=== PATIENT | male | born 1935 | race Caucasian/White ===

== ENCOUNTER 2019-06-04 15:00 | Inpatient (IN) | payer MEDICARE, BC ==
[~2019-06-04] VITALS: Ht 175.3 cm; Wt 86.2 kg
[2019-06-04] MEDS ORDERED: ACET500T68 PO (15:27)
[2019-06-04] MEDS ORDERED: GABA600T7 PO (15:47)
[2019-06-04] MEDS ORDERED: ASPI325T8 PO (15:47)
[2019-06-04] MEDS ORDERED: CYAN250012 PO (15:47)
[2019-06-04] MEDS ORDERED: CITA40TA5 PO (15:47)
[2019-06-04] MEDS ORDERED: QUET50TA5 PO (15:47)
[2019-06-04] MEDS ORDERED: METF500T16 PO (15:47)
[2019-06-04] MEDS ORDERED: MEMA5TAB14 PO (15:47)
[2019-06-04] MEDS ORDERED: ATORVASTATIN CA80 MG PO (15:47)
[2019-06-04] MEDS ORDERED: LISI-334 PO (15:47)
[2019-06-04] MEDS ORDERED: TAMS0.4C97 PO (15:47)
[2019-06-04] MEDS ORDERED: METHYL SALICYLATE/MENTHOL TOPICAL OINTMENT 57GM TUBE. TP PRN (16:00)
[2019-06-04] MEDS ORDERED: MAGNESIUM HYDROXIDE 2,400 MG/30 ML ORAL.SUSP. PO PRN (16:00)
[2019-06-04] MEDS ORDERED: ACETAMINOPHEN 325 MG TABLET PO PRN (16:00)
[2019-06-04] MEDS ORDERED: MAG HYDROX/AL HYDROX/SIMETH 30 ML ORAL.SUSP PO PRN (16:00)
[2019-06-04] MEDS ORDERED: ACETAMINOPHEN 500 MG TABLET PO PRN (16:30)
[2019-06-04 17:00] VITALS: BP 108/60
[2019-06-04] MEDS: metFORMIN 500 MG TABLET PO SCH (17:00)
[2019-06-04 19:17] LABS: BASO # 0.1 x10^3/uL (0.0-0.2); BASO % 1 % (0-3); EOS # 0.2 x10^3/uL (0.0-0.7); EOS % 2 % (0-3); HEMOGLOBIN 11.7 g/dL (13.0-17.5); LYMPH # 1.4 x10^3/uL (1.0-4.8); LYMPH % 17 % (24-48); MEAN CORPUSCULAR HEMOGLOBIN 32 pg (25-35); MEAN CORPUSCULAR HGB CONC 33 g/dL (31-37); MEAN CORPUSCULAR VOLUME 96 fL (79-100); MONO # 0.7 x10^3/uL (0.0-1.1); MONO % 8 % (0-9); NEUT % 73 % (31-73); PLATELET COUNT 240 x10^3/uL (140-400); RED BLOOD COUNT 3.66 x10^6/uL (4.30-5.70); RED CELL DISTRIBUTION WIDTH 15.5 % (11.5-14.5); WHITE BLOOD COUNT 8.3 x10^3/uL (4.0-11.0)
[2019-06-04 19:42] LABS: ALBUMIN 3.2 g/dL (3.4-5.0); ALBUMIN/GLOBULIN RATIO 0.7 (1.0-1.7); CALCIUM 9.1 mg/dL (8.5-10.1); CREATININE 1.5 mg/dL (0.7-1.3); GFR 44.8; MAGNESIUM 1.8 mg/dL (1.8-2.4); POTASSIUM 3.3 mmol/L (3.5-5.1); TOTAL BILIRUBIN 0.7 mg/dL (0.2-1.0); TOTAL PROTEIN 7.7 g/dL (6.4-8.2)
[2019-06-04] MEDS ORDERED: ATORVASTATIN CALCIUM 20 MG TABLET PO SCH (21:00)
[2019-06-04] MEDS: GABAPENTIN 300 MG CAPSULE. PO SCH (21:27)
[2019-06-04] MEDS: QUEtiapine 50 MG TABLET. PO SCH (21:27)
--- NOTE | 2019-06-04 21:52 | PDOC ---
Exam Note: Shola Note: Please also refer to the separate dictated note~for this date of service dictated separately. Discussed the patient with Nursing staff reviewed the chart.~Reviewed interim history and current functioning. Reviewed vital signs,~Labs/ Radiology~and current medications noted below. Continue current treatment with the changes noted in the dictated addendum note Assessment: Vital Signs/I&O: Vital Signs Date Time Temp Pulse Resp B/P (MAP) Pulse Ox O2 Delivery O2 Flow Rate FiO2 06/04/19 17:00 97.5 79 16 108/60 (76) 100 Labs: Laboratory Tests Test 06/04/19 18:58 06/04/19 18:59 Glucose (Fingerstick) 141 mg/dL (70-99) H White Blood Count 8.3 x10^3/uL (4.0-11.0) Red Blood Count 3.66 x10^6/uL (4.30-5.70) L Hemoglobin 11.7 g/dL (13.0-17.5) L Hematocrit 35.0 % (39.0-53.0) L Mean Corpuscular Volume 96 fL (79-100) Mean Corpuscular Hemoglobin 32 pg (25-35) Mean Corpuscular Hemoglobin Concent 33 g/dL (31-37) Red Cell Distribution Width 15.5 % (11.5-14.5) H Platelet Count 240 x10^3/uL (140-400) Neutrophils (%) (Auto) 73 % (31-73) Lymphocytes (%) (Auto) 17 % (24-48) L Monocytes (%) (Auto) 8 % (0-9) Eosinophils (%) (Auto) 2 % (0-3) Basophils (%) (Auto) 1 % (0-3) Neutrophils # (Auto) 6.0 x10^3uL (1.8-7.7) Lymphocytes # (Auto) 1.4 x10^3/uL (1.0-4.8) Monocytes # (Auto) 0.7 x10^3/uL (0.0-1.1) Eosinophils # (Auto) 0.2 x10^3/uL (0.0-0.7) Basophils # (Auto) 0.1 x10^3/uL (0.0-0.2) Sodium Level 142 mmol/L (136-145) Potassium Level 3.3 mmol/L (3.5-5.1) L Chloride Level 104 mmol/L (98-107) Carbon Dioxide Level 27 mmol/L (21-32) Anion Gap 11 (6-14) Blood Urea Nitrogen 21 mg/dL (8-26) Creatinine 1.5 mg/dL (0.7-1.3) H Estimated GFR (Cockcroft-Gault) 44.8 BUN/Creatinine Ratio 14 (6-20) Glucose Level 148 mg/dL (70-99) H Calcium Level 9.1 mg/dL (8.5-10.1) Magnesium Level 1.8 mg/dL (1.8-2.4) Total Bilirubin 0.7 mg/dL (0.2-1.0) Aspartate Amino Transferase (AST) 18 U/L (15-37) Alanine Aminotransferase (ALT) 13 U/L (16-63) L Alkaline Phosphatase 96 U/L (46-116) Total Protein 7.7 g/dL (6.4-8.2) Albumin 3.2 g/dL (3.4-5.0) L Albumin/Globulin Ratio 0.7 (1.0-1.7) L Current Medications: Meds: Current Medications Medications (Trade) Dose Ordered Sig/Olga Route PRN Reason Start Time Stop Time Status Last Admin Dose Admin Metformin HCl (Glucophage) 500 mg BIDWMEALS PO 06/04/19 17:00 06/04/19 17:00 Quetiapine Fumarate (SEROquel) 50 mg BID PO 06/04/19 21:00 06/04/19 21:27 Atorvastatin Calcium (Lipitor) 80 mg QHS PO 06/04/19 21:00 06/04/19 21:27 Gabapentin (Neurontin) 300 mg BID PO 06/04/19 21:00 06/04/19 21:27 I have reviewed the current psychotropics carefully including drug interactions. Risk benefit ratio favors no change other than as noted in my dictated progress note. 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
[2019-06-05 06:30] VITALS: BP 121/63
[2019-06-05 06:30] LABS: BACTERIA,URINE MOD /HPF (0-FEW); BILIRUBIN,URINE NEG (NEG); CLARITY,URINE CLOUDY; COLOR,URINE AMBER; GLUCOSE,URINE NEG (NEG); NITRITE,URINE NEG (NEG); RBC,URINE >40 /HPF (0-2); UROBILINOGEN,URINE 8 mg/dL (0.2 mg/dL); WBC,URINE >40 /HPF (0-4)
[2019-06-05 06:31] LABS: GRANULAR CASTS,URINE OCC /HPF; HYALINE CASTS, URINE FEW /HPF; SQUAMOUS EPITHELIAL CELL,UR FEW /LPF
[2019-06-05] MEDS: GABAPENTIN 300 MG CAPSULE. PO SCH (08:16)
[2019-06-05] MEDS: QUEtiapine 50 MG TABLET. PO SCH (08:17)
[2019-06-05] MEDS: metFORMIN 500 MG TABLET PO SCH (08:17)
[2019-06-05] MEDS ORDERED: NICOTINE 7MG PATCH. TD SCH (09:00)
[2019-06-05] MEDS ORDERED: TAMSULOSIN 0.4 MG CAP.ER.24H. PO SCH (09:00)
[2019-06-05] MEDS ORDERED: MEMANTINE 5 MG TABLET. PO SCH (09:00)
[2019-06-05] MEDS ORDERED: ASPIRIN 325 MG TABLET PO SCH (09:00)
[2019-06-05] MEDS ORDERED: LISINOPRIL 20 MG TABLET PO SCH (09:00)
[2019-06-05] MEDS ORDERED: CITALOPRAM 20 MG TABLET. PO SCH (09:00)
[2019-06-05] MEDS ORDERED: CYANOCOBALAMIN (VITAMIN B-12) 1,000 MCG TABLET. PO SCH (09:00)
[2019-06-05] MEDS ORDERED: POTASSIUM CHLORIDE 20 MEQ TABLET.ER. PO ONE (12:00)
[2019-06-05 13:25] LABS: THYROID STIM HORMONE (TSH) 1.706 uIU/mL (0.358-3.740)
[2019-06-05] MEDS ORDERED: IV NORMAL SALINE 500ML 500 ML IV ONE (14:15)
[2019-06-05 15:05] LABS: BASO # 0.1 x10^3/uL (0.0-0.2); BASO % 1 % (0-3); EOS # 0.1 x10^3/uL (0.0-0.7); EOS % 2 % (0-3); HEMOGLOBIN 10.5 g/dL (13.0-17.5); LYMPH # 1.4 x10^3/uL (1.0-4.8); LYMPH % 17 % (24-48); MEAN CORPUSCULAR HEMOGLOBIN 32 pg (25-35); MEAN CORPUSCULAR HGB CONC 33 g/dL (31-37); MEAN CORPUSCULAR VOLUME 96 fL (79-100); MONO # 0.8 x10^3/uL (0.0-1.1); MONO % 10 % (0-9); NEUT # 5.8 x10^3uL (1.8-7.7); NEUT % 71 % (31-73); PLATELET COUNT 224 x10^3/uL (140-400); RED BLOOD COUNT 3.32 x10^6/uL (4.30-5.70); RED CELL DISTRIBUTION WIDTH 15.1 % (11.5-14.5); WHITE BLOOD COUNT 8.3 x10^3/uL (4.0-11.0)
[2019-06-05 15:16] LABS: ALBUMIN/GLOBULIN RATIO 0.7 (1.0-1.7); CALCIUM 9.1 mg/dL (8.5-10.1); CREATININE 1.7 mg/dL (0.7-1.3); GFR 38.8; POTASSIUM 4.3 mmol/L (3.5-5.1); TOTAL BILIRUBIN 0.5 mg/dL (0.2-1.0); TOTAL PROTEIN 7.3 g/dL (6.4-8.2)
[2019-06-05 15:44] VITALS: BP 137/75
[2019-06-05] MEDS ORDERED: OLANZapine 2.5 MG TABLET PO PRN (16:00)
--- NOTE | 2019-06-05 16:12 | HP ---
ADMIT DATE: 06/04/2019 This is a late entry date of service 06/04/2019 covers elements not covered in my initial note of 06/04/2019. I met with the patient in the evening of 06/04/2019. Discussed with nursing staff, reviewed the chart. IDENTIFYING DATA: The patient is an 83-year-old male referred to us from the Emergency Room at [facility] where he presented and admitted by his , Hope Pérez, who is his DPOA, after he presented on account of increasing agitation and confusion. He was combative, hitting staff, and verbally aggressive, received Haldol several times. He essentially lives at home with his and has been treated by his primary care physician, Dr. Calderon. He has been increasingly confused, psychotic, and had been at a nursing facility for 10 days and then family took him home before he was found to be unmanageable and then brought to the ER because of dangerous [id number] behaviors. CHIEF COMPLAINT: "No." The patient is quite confused. HISTORY OF PRESENT ILLNESS: The patient has a history of dementia, Alzheimer's of vascular type. He has been essentially residing at home, but progressively getting totally unmanageable, psychotic, agitated within the correction and then back home. He has had sleep and appetite changes, mood swings, but no clear history of bipolar disorder, suicidal, or homicidal ideation. PAST PSYCHIATRIC HISTORY: As above. MEDICAL HISTORY: Positive for progressive weakness, falls, acute mental status changes, atrial fibrillation, and type 2 diabetes mellitus. CODE STATUS: DNR. DRUG ALLERGIES: Negative. ACCU-CHEKS: Daily. DIET: Cardiac diabetic finger foods. Takes medications whole. ACTIVITIES: Ambulates with walker. PRIOR LABORATORIES: UA was negative at [facility]. CURRENT PSYCHOTROPICS: Seroquel 50 mg b.i.d., Celexa 40 mg daily, Namenda 5 mg daily until 06/08/2019 and then increase to b.i.d. FAMILY HISTORY: Noncontributory. SOCIAL HISTORY: No history of alcohol, drug abuse, physical, sexual or elder abuse. He is not known to be a perpetrator. REACTION TO HOSPITALIZATION: The patient oblivious of this. ASSETS: Supportive family. MENTAL STATUS EXAMINATION: The patient was seen individually in the evening of 06/04/2019. He is oriented to himself, anxious, restless, and unaware of where he was, felt he had been here for many years. Insight, judgment, recent and remote memory, attention, concentration, fund of knowledge poor, consistent with his diagnosis. IMPRESSION: Major neurocognitive disorder, Alzheimer, vascular with delusion, depression, behavioral disturbance; anxiety disorder, unspecified; impulse control disorder, unspecified. Rest diagnoses as noted above. PLAN: Admit to Geropsychiatry Unit at [facility]. I will see the patient daily individually from a psychiatric standpoint. Medical followup with Dr. Merida. Continue the patient on his current psychotropics, observe baseline, then make further adjustments as clinically indicated. Estimated length of stay 10-12 days. DISCHARGE PLANS: Either back to facility or possibly home, though the facility may be a more appropriate disposition. MAN Cristina LANDAVERDE MD DR: KYLE/abundio JOB#: [id number] / [id number]
--- NOTE | 2019-06-05 16:20 | RAD ---
EXAM: Chest, single view. HISTORY: Shortness of breath. COMPARISON: None. FINDINGS: A frontal view of the chest is obtained. There is diffuse interstitial infiltrate. There is no consolidation, pleural effusion or pneumothorax. There is a prominent cardiac silhouette. There is a dorsal column stimulator overlying the mid thoracic spine. IMPRESSION: Diffuse interstitial infiltrate. Electronically signed by: Kathie Morocho MD (06/05/2019 4:17 PM) [facility]
--- NOTE | 2019-06-05 16:24 | DS ---
DATE OF DISCHARGE: 06/05/2019 DISCHARGE SUMMARY AND PSYCHIATRIC PROGRESS NOTE This note covers elements not covered in my initial note 06/05. REASON FOR ADMISSION: Please refer to the admission history for details. Briefly, the patient is an 83-year-old male referred to us from the Emergency Room at [facility] where he presented from home after having spent 10 days in a facility on account of his worsening confusion and agitation. The patient had been totally unmanageable at home and in the ER, was combative, hitting staff, verbally aggressive, received Haldol several times and had failed all these interventions. Behaviors were deemed dangerous, unmanageable resulting in this referral. SIGNIFICANT FINDINGS AND CLINICAL COURSE: Following admission, the patient was seen in the evening of 06/04 by myself and seen daily thereafter. He remained confused, intermittently agitated and paranoid. On 06/05, he seemed to have worsening confusion, sedation. Labs showed an elevated lactic acid and he was in renal failure and transferred to [address] [place] [address] Medical/Surgical floor per Dr. Merida for medical stabilization. Prior to discharge on 06/05, no CV, , pulmonary, eye, ENT system symptoms on review. Reliability poor. MENTAL STATUS EXAM: Oriented to himself. Insight, judgment, recent and remote memory, attention, concentration, fund of knowledge poor, consistent with his diagnosis. FINAL DIAGNOSES: Major neurocognitive disorder, Alzheimer, vascular with delusion, depression, behavioral disturbance; anxiety disorder, unspecified; impulse control disorder, unspecified; renal failure; elevated lactic acid. Rest unchanged from admission. DISCHARGE MEDICATIONS: Please refer to the MRAD. DISCHARGE INSTRUCTIONS: Psychiatric and medical followup on . We will defer all this to Dr. Merida. MAN Cristina LANDAVERDE MD DR: KYLE/abundio JOB#: [id number] / [id number]
--- NOTE | 2019-06-05 16:46 | RAD ---
Examination: CT HEAD WO CONTRAST History: Altered mental status Comparison/Correlation: None Findings: Axial images of the head were obtained without contrast. Atrophy is present. Old right occipital lobe infarct is present. Old right frontal lobe infarct is present. Old right thalamic lacunar infarct noted. Ventriculomegaly is present and likely represents volume loss. No depressed fracture. Globes and optic nerves are unremarkable. Impression: Old infarcts. Atrophy and chronic ischemic change. Ventriculomegaly likely represents volume loss. Correlate for possibility of normal pressure hydrocephalus. PQRS Compliance Statement: One or more of the following individualized dose reduction techniques were utilized for this examination: 1. Automated exposure control 2. Adjustment of the mA and/or kV according to patient size 3. Use of iterative reconstruction technique Electronically signed by: Leif Stockton MD (06/05/2019 4:43 PM) [facility]
[2019-06-05] MEDS ORDERED: OLAN2.5T3 PO (17:45)
[2019-06-05] MEDS ORDERED: NICO1PAT25 TP (17:45)
--- NOTE | 2019-06-05 21:58 | PDOC ---
Exam Note: Shola Note: Please also refer to the separate dictated note~for this date of service dictated separately.~Patient seen individually. Discussed the patient with Nursing staff reviewed the chart.~Reviewed interim history and current functioning. Reviewed vital signs,~Labs/ Radiology~and current medications noted below. Continue current treatment with the changes noted in the dictated addendum note Assessment: Vital Signs/I&O: Vital Signs Date Time Temp Pulse Resp B/P (MAP) Pulse Ox O2 Delivery O2 Flow Rate FiO2 06/05/19 15:44 97.2 104 16 137/75 (95) 95 I & O 06/04/19 06/04/19 06/05/19 15:00 23:00 07:00 Intake Total 240 ml 100 ml Output Total 350 ml Balance 240 ml -250 ml Labs: Laboratory Tests Test 06/05/19 05:08 06/05/19 07:15 06/05/19 13:33 06/05/19 14:45 Urine Collection Type Unknown Urine Color Cheryl Urine Clarity Cloudy Urine pH 5.5 Urine Specific [place] 1.020 Urine Protein Trace (NEG-TRACE) Urine Glucose (UA) Neg mg/dL (NEG) Urine Ketones (Stick) Trace mg/dL (NEG) Urine Blood Mod (NEG) Urine Nitrite Neg (NEG) Urine Bilirubin Neg (NEG) Urine Urobilinogen Dipstick 8 mg/dL (0.2 mg/dL) Urine Leukocyte Esterase Small (NEG) Urine RBC >40 /HPF (0-2) Urine WBC >40 /HPF (0-4) Urine Squamous Epithelial Cells Few /LPF Urine Bacteria Mod /HPF (0-FEW) Urine Hyaline Casts Few /HPF Urine Granular Casts Occ /HPF Urine Mucus Marked /LPF Glucose (Fingerstick) 113 mg/dL (70-99) H 102 mg/dL (70-99) H White Blood Count 8.3 x10^3/uL (4.0-11.0) Red Blood Count 3.32 x10^6/uL (4.30-5.70) L Hemoglobin 10.5 g/dL (13.0-17.5) L Hematocrit 32.0 % (39.0-53.0) L Mean Corpuscular Volume 96 fL (79-100) Mean Corpuscular Hemoglobin 32 pg (25-35) Mean Corpuscular Hemoglobin Concent 33 g/dL (31-37) Red Cell Distribution Width 15.1 % (11.5-14.5) H Platelet Count 224 x10^3/uL (140-400) Neutrophils (%) (Auto) 71 % (31-73) Lymphocytes (%) (Auto) 17 % (24-48) L Monocytes (%) (Auto) 10 % (0-9) H Eosinophils (%) (Auto) 2 % (0-3) Basophils (%) (Auto) 1 % (0-3) Neutrophils # (Auto) 5.8 x10^3uL (1.8-7.7) Lymphocytes # (Auto) 1.4 x10^3/uL (1.0-4.8) Monocytes # (Auto) 0.8 x10^3/uL (0.0-1.1) Eosinophils # (Auto) 0.1 x10^3/uL (0.0-0.7) Basophils # (Auto) 0.1 x10^3/uL (0.0-0.2) Sodium Level 143 mmol/L (136-145) Potassium Level 4.3 mmol/L (3.5-5.1) # Chloride Level 107 mmol/L (98-107) Carbon Dioxide Level 25 mmol/L (21-32) Anion Gap 11 (6-14) Blood Urea Nitrogen 28 mg/dL (8-26) H Creatinine 1.7 mg/dL (0.7-1.3) H Estimated GFR (Cockcroft-Gault) 38.8 BUN/Creatinine Ratio 16 (6-20) Glucose Level 129 mg/dL (70-99) H Lactic Acid Level 4.1 mmol/L (0.4-2.0) *H Calcium Level 9.1 mg/dL (8.5-10.1) Total Bilirubin 0.5 mg/dL (0.2-1.0) Aspartate Amino Transferase (AST) 18 U/L (15-37) Alanine Aminotransferase (ALT) 13 U/L (16-63) L Alkaline Phosphatase 91 U/L (46-116) Total Protein 7.3 g/dL (6.4-8.2) Albumin 3.0 g/dL (3.4-5.0) L Albumin/Globulin Ratio 0.7 (1.0-1.7) L Test 06/05/19 18:40 Lactic Acid Level 1.9 mmol/L (0.4-2.0) Current Medications: Meds: Current Medications Medications (Trade) Dose Ordered Sig/Olga Route PRN Reason Start Time Stop Time Status Last Admin Dose Admin Aspirin (Cheo Aspirin) 325 mg DAILY PO 06/05/19 09:00 06/05/19 17:03 DC 06/05/19 08:16 Lisinopril (Prinivil) 20 mg DAILY PO 06/05/19 09:00 06/05/19 17:03 DC 06/05/19 08:16 Memantine (Namenda) 5 mg DAILY PO 06/05/19 09:00 06/05/19 17:03 DC 06/05/19 08:17 Tamsulosin HCl (Flomax) 0.4 mg DAILY PO 06/05/19 09:00 06/05/19 17:03 DC 06/05/19 08:16 Citalopram Hydrobromide (CeleXA) 40 mg DAILY PO 06/05/19 09:00 06/05/19 17:03 DC 06/05/19 08:16 Cyanocobalamin (Vitamin B-12) 1,000 mcg DAILY PO 06/05/19 09:00 06/05/19 17:03 DC 06/05/19 08:17 Nicotine (Nicoderm Cq 7mg) 1 patch DAILY TD 06/05/19 09:00 06/05/19 17:03 DC 06/05/19 08:16 Olanzapine (ZyPREXA) 2.5 mg PRN Q2HR PRN PO ANXIETY / AGITATION 06/05/19 16:00 06/05/19 17:03 DC 06/05/19 15:52 I have reviewed the current psychotropics carefully including drug interactions. Risk benefit ratio favors no change other than as noted in my dictated progress note. Diagnosis: Problems: (1) Late onset Alzheimer's disease with behavioral disturbance (2) Anxiety disorder (3) Dementia in Alzheimer's disease with delusions (4) Dementia in Alzheimer's disease with depression (5) Dementia, vascular, with delusions (6) Dementia, vascular, with depression (7) Impulse control disorder JB LANDAVERDE MD Jun 05, 2019 21:58
[2019-06-05 22:11] LABS: THYROXINE 6.6 ug/dL (4.5-12.0)
[2019-06-05 23:07] LABS: HEMOGLOBIN A1C 5.9 % (4.8-5.6)
== END 2019-06-05 16:45 | disposition short-term general hospital (02) | DRG 56 ==
LOC: GEROPSY 15:44
PROVIDERS: ADMIT Psychiatry & Neurology Psychiatry; ATTEND Psychiatry & Neurology Psychiatry
DX: G30.1 Alzheimer's disease with late onset (principal); N17.0 Acute kidney failure with tubular necrosis; F02.81 Dementia in other diseases classified elsewhere, unspecified severity, with behavioral disturbance; F32.9 Major depressive disorder, single episode, unspecified; F01.50 Vascular dementia, unspecified severity, without behavioral disturbance, psychotic disturbance, mood disturbance, and anxiety; F41.9 Anxiety disorder, unspecified; F63.9 Impulse disorder, unspecified; E11.9 Type 2 diabetes mellitus without complications; I48.91 Unspecified atrial fibrillation; Z66 Do not resuscitate
CPT/HCPCS: 36415; 70450; 71045; 80053; 80061; 81001; 82306; 82947; 83036; 83540; 83550; 83605; 83735; 84436; 84443; 84480; 85025; 86592; 87086; 99406

== ENCOUNTER 2019-06-05 16:43 | Inpatient (IN) | payer MEDICARE, BC ==
[2019-06-05] VITALS (7 sets, daily range): BP systolic 92–151; BP diastolic 52–128
[~2019-06-05] VITALS: Ht 175.3 cm; Wt 90.8 kg
[~2019-06-05 16:43] MED LIST: ACET500T68 PO; ASPI325T8 PO; ATORVASTATIN CA80 MG PO; CITA40TA5 PO; CYAN250012 PO; GABA600T7 PO; LISI-334 PO; MEMA5TAB14 PO; METF500T16 PO; QUET50TA5 PO; TAMS0.4C97 PO
[2019-06-05] MEDS ORDERED: NICO1PAT25 TP (17:45)
[2019-06-05] MEDS ORDERED: OLAN2.5T3 PO (17:45)
[2019-06-05] MEDS ORDERED: IV NORMAL SALINE 500ML 500 ML IV ONE (18:00)
[2019-06-05] MEDS ORDERED: DEXTROSE 50% 25 GM / 50ML DISP.SYRIN. IV PRN (18:00)
--- NOTE | 2019-06-05 18:07 | HP ---
ADMIT DATE: 06/05/2019 HISTORY OF PRESENT ILLNESS: The patient is an 83-year-old male patient who was admitted to [facility] as a transfer from [facility] on account of being combative, hitting staff, verbally aggressive, requiring Haldol several times. All this in a background of dementia with behavioral disorder. He apparently was living at home with his and fell and that is why he ended up at [facility]. He apparently hit his head. CT scan showed no abnormalities. According to his son, he has been incontinent of urine. Has had an indwelling Car catheter placed at [facility] and was transferred to [facility] for inpatient psychiatric stabilization. PAST MEDICAL HISTORY: Significant for type 2 diabetes, atrial fibrillation, hyperlipidemia, benign prostatic hypertrophy, hypertension. He has also multiple cerebrovascular accidents. He has lumbar vertebral fracture at L1-L2 and for which he underwent vertebroplasty. Has also nerve stimulator in his back. He underwent a kyphoplasty in 03/2019. FAMILY HISTORY: Noncontributory. SOCIAL HISTORY: He is and lives with his . He apparently is an ex-smoker. He is currently on nicotine patch 7 mg daily. ALLERGIES: He has no known drug allergies. MEDICATIONS: He is currently on following medications: He is on Flomax 0.4 mg daily, atorvastatin calcium 80 mg at bedtime, lisinopril 20 mg once a day, aspirin 650 mg every 4 hours, gabapentin 300 mg twice a day, citalopram hydrobromide 40 mg daily, quetiapine fumarate 50 mg twice a day, Namenda 5 mg daily, metformin 500 mg twice a day with meals, cyanocobalamin 2500 mcg chewable tablet once a day. REVIEW OF SYSTEMS: As per history of present illness. The patient was noted to be lethargic and was hypotensive. His blood pressure was noted to be hypertensive with blood pressure of 81/55. We advised to increase his fluid intake and start him on IV fluid and sent blood for CBC and CMP, lactic acid. We will order CT scan of the head as he was complaining of headache and a chest x-ray. LABORATORY DATA: Showed that his white cell count was 8300, hemoglobin 11, hematocrit 32, MCV 96, and platelet 224,000. His chemistry showed a serum sodium 143, potassium 4.3, chloride 107, bicarbonate 25, anion gap of 11, BUN 28, creatinine 1.7, estimated GFR was 59 mL per minute, glucose 129. Lactic acid was high at 4.1 and calcium was 9.1. Total bilirubin, AST, ALT, alkaline phosphatase were normal. He has had a CT scan of the head, which basically showed that the patient has atrophy, old right occipital lobe infarct. Old right frontal lobe infarct present, old right thalamic lacunar infarct noted. Ventriculomegaly is present and likely representing volume loss. No depressed fracture. Globes and optic nerves unremarkable. He has had a chest x-ray, which basically showed that there is diffuse interstitial infiltrate, there is no consolidation, pleural effusion or pneumothorax. There is a prominent cardiac silhouette. There is a dorsal column stimulator overlying the mid thoracic spine. His urinalysis showed that the urine was cloudy with a pH of 5.5, specific gravity 1.020. There was trace of protein, negative for glucose, trace of ketones, moderate amount of blood, negative for nitrite, small amount of leukocyte esterase with more than 40 rbc's, more than 40 wbc's and moderate amount of bacteria. His treponema pallidum antibodies were nonreactive. Given hypotension, lactic acidosis and the finding on the chest and urinalysis, the patient was diagnosed with sepsis and was transferred to the ICU and to be started on IV antibiotics in the form of Zosyn and Zyvox as his kidney functions are normal. Continue with IV fluid. We will repeat his labs tomorrow and obviously we will send urine for culture and sensitivity and urine for legionella and mycoplasma antigen. JOY BIRMINGHAM MD DR: NINA/abundio JOB#: [id number] / [id number]
[2019-06-05] MEDS: IV NORMAL SALINE 1,000ML 1,000 ML IV SCH (18:09)
[2019-06-05] MEDS: PIPERACILLIN/TAZOBACTAM 2.25 GM in IV NORMAL SALINE 50ML 50 ML IV SCH (20:08)
[2019-06-05] MEDS: ACETAMINOPHEN 500 MG TABLET PO PRN (20:43)
[2019-06-05] MEDS: GABAPENTIN 300 MG CAPSULE. PO SCH (20:43)
[2019-06-05] MEDS: OLANZapine 2.5 MG TABLET PO PRN (20:43)
[2019-06-05] MEDS: QUEtiapine 50 MG TABLET. PO SCH (20:43)
[2019-06-06] VITALS (21 sets, daily range): BP systolic 79–155; BP diastolic 41–93
[2019-06-06] MEDS: PIPERACILLIN/TAZOBACTAM 2.25 GM in IV NORMAL SALINE 50ML 50 ML IV SCH ×3 (01:50→17:46)
[2019-06-06] MEDS: IV NORMAL SALINE 1,000ML 1,000 ML IV SCH ×2 (04:25→11:50)
[2019-06-06 06:23] LABS: HEMATOCRIT 29.7 % (39.0-53.0); HEMOGLOBIN 9.8 g/dL (13.0-17.5); RED BLOOD COUNT 3.14 x10^6/uL (4.30-5.70); RED CELL DISTRIBUTION WIDTH 14.9 % (11.5-14.5); WHITE BLOOD COUNT 5.9 x10^3/uL (4.0-11.0)
[2019-06-06 06:49] LABS: ALBUMIN 2.5 g/dL (3.4-5.0); ALBUMIN/GLOBULIN RATIO 0.7 (1.0-1.7); CALCIUM 8.5 mg/dL (8.5-10.1); CREATININE 1.2 mg/dL (0.7-1.3); POTASSIUM 3.4 mmol/L (3.5-5.1); TOTAL BILIRUBIN 0.5 mg/dL (0.2-1.0); TOTAL PROTEIN 6.3 g/dL (6.4-8.2)
[2019-06-06] MEDS: INSULIN LISPRO 300 UNITS/3 ML VIAL. SQ SCH ×3 (08:00→17:00)
[2019-06-06] MEDS ORDERED: NON FORMULARY ITEM (Citalopram Hydrobromide (Citalopram Hbr) 40 MG) PO SCH (09:00)
[2019-06-06] MEDS: LACTOBACILLUS RHAMNOSUS GG 1 CAPSULE. PO SCH ×2 (09:02→20:39)
[2019-06-06] MEDS: MEMANTINE 5 MG TABLET. PO SCH (09:02)
[2019-06-06] MEDS: ATORVASTATIN CALCIUM 20 MG TABLET PO SCH (09:02)
[2019-06-06] MEDS: ASPIRIN 325 MG TABLET PO SCH (09:03)
[2019-06-06] MEDS: QUEtiapine 50 MG TABLET. PO SCH (09:03)
[2019-06-06] MEDS: TAMSULOSIN 0.4 MG CAP.ER.24H. PO SCH (09:03)
[2019-06-06] MEDS: CYANOCOBALAMIN (VITAMIN B-12) 1,000 MCG TABLET. PO SCH (09:03)
[2019-06-06] MEDS: GABAPENTIN 300 MG CAPSULE. PO SCH ×2 (09:03→20:40)
[2019-06-06] MEDS: NICOTINE 14MG PATCH. TD SCH (09:03)
[2019-06-06] MEDS: OLANZapine 2.5 MG TABLET PO PRN (18:35)
[2019-06-06] MEDS ORDERED: POTASSIUM CHLORIDE 20 MEQ TABLET.ER. PO ONE (19:30)
--- NOTE | 2019-06-06 21:33 | PDOC ---
Exam Note: Shola Note: Please also refer to the separate dictated note~for this date of service dictated separately.~Patient seen individually. Discussed the patient with Nursing staff reviewed the chart.~Reviewed interim history and current functioning. Reviewed vital signs,~Labs/ Radiology~and current medications noted below. Continue current treatment with the changes noted in the dictated addendum note Assessment: Vital Signs/I&O: Vital Signs Date Time Temp Pulse Resp B/P (MAP) Pulse Ox O2 Delivery O2 Flow Rate FiO2 06/06/19 20:00 Room Air 06/06/19 20:00 98.3 83 18 143/84 (103) 06/06/19 19:00 96 I & O 06/05/19 06/05/19 06/06/19 15:00 23:00 07:00 Intake Total 1599 ml 853 ml Output Total 1150 ml Balance 1599 ml -297 ml Labs: Laboratory Tests Test 06/06/19 05:38 06/06/19 07:43 06/06/19 11:38 06/06/19 17:25 White Blood Count 5.9 x10^3/uL (4.0-11.0) Red Blood Count 3.14 x10^6/uL (4.30-5.70) L Hemoglobin 9.8 g/dL (13.0-17.5) L Hematocrit 29.7 % (39.0-53.0) L Mean Corpuscular Volume 95 fL (79-100) Mean Corpuscular Hemoglobin 31 pg (25-35) Mean Corpuscular Hemoglobin Concent 33 g/dL (31-37) Red Cell Distribution Width 14.9 % (11.5-14.5) H Platelet Count 206 x10^3/uL (140-400) Sodium Level 143 mmol/L (136-145) Potassium Level 3.4 mmol/L (3.5-5.1) L Chloride Level 109 mmol/L (98-107) H Carbon Dioxide Level 25 mmol/L (21-32) Anion Gap 9 (6-14) Blood Urea Nitrogen 23 mg/dL (8-26) Creatinine 1.2 mg/dL (0.7-1.3) Estimated GFR (Cockcroft-Gault) 58.0 BUN/Creatinine Ratio 19 (6-20) Glucose Level 104 mg/dL (70-99) H Calcium Level 8.5 mg/dL (8.5-10.1) Total Bilirubin 0.5 mg/dL (0.2-1.0) Aspartate Amino Transferase (AST) 20 U/L (15-37) Alanine Aminotransferase (ALT) 12 U/L (16-63) L Alkaline Phosphatase 77 U/L (46-116) WL-Mns-C-Type Natriuretic Peptide 295 pg/mL (0-449) Total Protein 6.3 g/dL (6.4-8.2) L Albumin 2.5 g/dL (3.4-5.0) L Albumin/Globulin Ratio 0.7 (1.0-1.7) L Glucose (Fingerstick) 97 mg/dL (70-99) 159 mg/dL (70-99) H 97 mg/dL (70-99) Test 06/06/19 20:36 Glucose (Fingerstick) 126 mg/dL (70-99) H Current Medications: Meds: Current Medications Medications (Trade) Dose Ordered Sig/Olga Route PRN Reason Start Time Stop Time Status Last Admin Dose Admin Aspirin (Cheo Aspirin) 325 mg DAILY PO 06/06/19 09:00 06/06/19 09:03 Memantine (Namenda) 5 mg DAILY PO 06/06/19 09:00 06/06/19 09:02 Nicotine (Nicoderm Cq 14mg) 1 patch DAILY TD 06/06/19 09:00 06/06/19 09:03 Tamsulosin HCl (Flomax) 0.4 mg DAILY PO 06/06/19 09:00 06/06/19 09:03 Atorvastatin Calcium (Lipitor) 80 mg DAILY PO 06/06/19 09:00 06/06/19 09:02 Cyanocobalamin (Vitamin B-12) 1,000 mcg DAILY PO 06/06/19 09:00 06/06/19 09:03 Insulin Human Lispro (HumaLOG) 0-5 UNITS TIDWMEALS SQ 06/06/19 08:00 06/06/19 11:51 Lactobacillus Rhamnosus (Culturelle) 1 cap BID PO 06/06/19 09:00 06/06/19 20:39 Potassium Chloride (Klor-Con) 40 meq 1X ONCE PO 06/06/19 19:30 06/06/19 19:31 DC 06/06/19 20:40 I have reviewed the current psychotropics carefully including drug interactions. Risk benefit ratio favors no change other than as noted in my dictated progress note. Diagnosis: Problems: (1) Late onset Alzheimer's disease with behavioral disturbance (2) Impulse control disorder (3) Dementia, vascular, with depression (4) Dementia, vascular, with delusions (5) Dementia in Alzheimer's disease with depression (6) Dementia in Alzheimer's disease with delusions (7) Anxiety disorder JB LANDAVERDE MD Jun 06, 2019 21:33
[2019-06-06] MEDS: IPRATRPIUM/ALBUTEROL 0.5/2.5MG 3 ML NEBU. NEB SCH (21:56)
[2019-06-06] MEDS: ACETAMINOPHEN 500 MG TABLET PO PRN (23:51)
[2019-06-07] VITALS (12 sets, daily range): BP systolic 100–167; BP diastolic 58–89
[2019-06-07] MEDS: IV NORMAL SALINE 1,000ML 1,000 ML IV SCH (01:01)
[2019-06-07] MEDS: PIPERACILLIN/TAZOBACTAM 2.25 GM in IV NORMAL SALINE 50ML 50 ML IV SCH ×3 (01:44→18:12)
[2019-06-07] MEDS: IPRATRPIUM/ALBUTEROL 0.5/2.5MG 3 ML NEBU. NEB SCH ×4 (05:26→20:41)
[2019-06-07 06:20] LABS: CALCIUM 8.3 mg/dL (8.5-10.1); CREATININE 1.1 mg/dL (0.7-1.3); GFR 64.1; POTASSIUM 3.9 mmol/L (3.5-5.1)
--- NOTE | 2019-06-07 07:03 | PN ---
DATE: 06/06/2019 SUBJECTIVE: The patient is an 83-year-old male patient, who was transferred yesterday from [facility] with hypotension, lactic acidosis and sepsis due to urinary tract infection ____ and he was given a bolus of fluid and continued on IV fluid at 100 mL per hour. He was started on Zyvox and Zosyn. His lactic acid came down from 4.1 to 1.9. He did have an episode of hypotension this morning, for which he received another bolus of IV fluid and when I saw him this afternoon, he was sitting propped up in bed, in no apparent respiratory distress. He is awake, alert, and responding appropriately. On questioning him, he denied any complaint. PHYSICAL EXAMINATION: GENERAL: When I examined him, he looked pale. No jaundice, cyanosis, or thyromegaly. No jugular venous distention. No limb edema. VITAL SIGNS: His heart rate was 67, blood pressure was 100/47, temperature was 97.7, respiratory rate was 18, and oxygen saturation was 96%. HEAD, EYES, EARS, NOSE, AND THROAT: Showed normocephalic and atraumatic. NECK: Supple. HEART: Showed normal first and second heart sounds. No gallop, rub, or murmur. CHEST: Clear to auscultation. Chest showed central trachea, equal bilateral expansion, air entry, vesicular sounds with crepitation on both sides. Posteriorly, he has also a few scattered rhonchi. ABDOMEN: Distended, soft, and nontender. NEUROLOGIC: He is demented, but without any obvious lateralizing sign. All his cranial nerves are intact. He moves the upper extremities to much good extent than lower extremities. He is mostly bedbound and chairbound. His intake was 2450 and output was 1150. LABORATORY DATA: As of this morning, his white cell count was 5900, hemoglobin 9.8, hematocrit 29.7, MCV 95, and platelet count 206,000. His serum sodium 143, potassium 3.4, chloride 109, bicarbonate 25, anion gap of 9, BUN 23, creatinine 1.2, estimated GFR was 58 mL per minute, his glucose was 104, and calcium was 8.5. Total bilirubin, AST, ALT, and alkaline phosphatase were normal. His BNP was only 295. Total protein was 6.3 and albumin was 2.5. ASSESSMENT: 1. Sepsis, likely due to urinary tract infection as well as pneumonia. The patient has a large amount leukocyturia with moderate amount of bacteriuria. Chest x-ray showed also bilateral infiltrate. 2. Type 2 diabetes mellitus, for which, he was on metformin. His blood sugar is reasonably controlled. 3. Atrial fibrillation, rate controlled, anticoagulated. 4. Hyperlipidemia. 5. Benign prostatic hypertrophy. 6. Bladder outlet obstruction, requiring indwelling Car catheter. 7. Hypertension. ____ the patient has hypotension. 8. He has also multiple cerebrovascular accidents with lumbar vertebral fracture at L1-L2, for which he underwent vertebroplasty. He has also had a nerve stimulator in his back. He underwent kyphoplasty in March 2019. PLAN: He is to continue with the IV fluid and continue with IV Zyvox and Zosyn and monitor his lab works on a daily basis and once we have the culture and sensitivity, we can deescalate his antibiotic. JOY BIRMINGHAM MD DR: NINA/abundio JOB#: [id number] / [id number]
[2019-06-07] MEDS: INSULIN LISPRO 300 UNITS/3 ML VIAL. SQ SCH ×3 (07:43→17:00)
[2019-06-07] MEDS: MEMANTINE 5 MG TABLET. PO SCH (09:01)
[2019-06-07] MEDS: LACTOBACILLUS RHAMNOSUS GG 1 CAPSULE. PO SCH ×2 (09:01→20:57)
[2019-06-07] MEDS: TAMSULOSIN 0.4 MG CAP.ER.24H. PO SCH (09:02)
[2019-06-07] MEDS: CYANOCOBALAMIN (VITAMIN B-12) 1,000 MCG TABLET. PO SCH (09:02)
[2019-06-07] MEDS: NICOTINE 14MG PATCH. TD SCH (09:02)
[2019-06-07] MEDS: GABAPENTIN 300 MG CAPSULE. PO SCH ×2 (09:02→20:57)
[2019-06-07] MEDS: ATORVASTATIN CALCIUM 20 MG TABLET PO SCH (09:02)
[2019-06-07] MEDS: ASPIRIN 325 MG TABLET PO SCH (09:02)
[2019-06-07] MEDS: CALCIUM CARBONATE 500 MG TAB.CHEW PO PRN ×4 (11:57→20:57)
[2019-06-07] MEDS ORDERED: POLYETHYLENE GLYCOL 3350 17 GM PACKET. PO PRN (19:30)
[2019-06-07] MEDS: DOCUSATE SODIUM 100 MG CAPSULE PO SCH (20:56)
--- NOTE | 2019-06-07 21:01 | PDOC ---
Exam Note: Shola Note: Please also refer to the separate dictated note~for this date of service dictated separately.~Patient seen individually. Discussed the patient with Nursing staff reviewed the chart.~Reviewed interim history and current functioning. Reviewed vital signs,~Labs/ Radiology~and current medications noted below. Continue current treatment with the changes noted in the dictated addendum note Assessment: Vital Signs/I&O: Vital Signs Date Time Temp Pulse Resp B/P (MAP) Pulse Ox O2 Delivery O2 Flow Rate FiO2 06/07/19 20:42 97 Room Air 06/07/19 19:30 98.1 84 18 158/71 (100) I & O 06/06/19 06/06/19 06/07/19 15:00 23:00 07:00 Intake Total 1590 ml 830 ml 1408 ml Balance 1590 ml 830 ml 1408 ml Labs: Laboratory Tests Test 06/07/19 05:45 06/07/19 20:51 Sodium Level 143 mmol/L (136-145) Potassium Level 3.9 mmol/L (3.5-5.1) Chloride Level 111 mmol/L (98-107) H Carbon Dioxide Level 24 mmol/L (21-32) Anion Gap 8 (6-14) Blood Urea Nitrogen 15 mg/dL (8-26) Creatinine 1.1 mg/dL (0.7-1.3) Estimated GFR (Cockcroft-Gault) 64.1 Glucose Level 105 mg/dL (70-99) H Calcium Level 8.3 mg/dL (8.5-10.1) L Glucose (Fingerstick) 99 mg/dL (70-99) Current Medications: Meds: Current Medications Medications (Trade) Dose Ordered Sig/Olga Route PRN Reason Start Time Stop Time Status Last Admin Dose Admin Calcium Carbonate/ Glycine (Tums) 500 mg PRN AFTMEALHC PRN PO INDIGESTION 06/07/19 09:15 06/07/19 20:57 Docusate Sodium (Colace) 100 mg DAILY PO 06/07/19 21:00 06/07/19 20:56 I have reviewed the current psychotropics carefully including drug interactions. Risk benefit ratio favors no change other than as noted in my dictated progress note. 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
--- NOTE | 2019-06-07 22:43 | PN ---
DATE: 06/06/2019 PSYCHIATRIC PROGRESS NOTE This late entry 06/06/2019 covers elements not covered in my initial note. SUBJECTIVE: I met with the patient evening of 06/06/2019 and met with the patient's son who was visiting him in the ICU bed 2. The patient was [facility] the [facility], being stabilized for his dementia with delusion, depression, behavioral disturbance and then developed pneumonia and UTI and was transferred to the ICU. I have been asked to follow the patient from a psychiatric standpoint by Dr. Merida while he was being medically stabilized. Per nursing report, the patient remains somewhat tearful, anxious, wanting to go home irrespective of his medical condition and son was trying to explain this to him. REVIEW OF SYSTEMS: Positive for impaired ambulation. No CV, or pulmonary system symptoms on review. MENTAL STATUS EXAMINATION: Oriented to himself. Insight, judgment, recent memory is impaired. Language function intact. Attention span short. Mood and affect depressed, anxious, quite labile. LABORATORY DATA: Reviewed. IMPRESSION: Major neurocognitive disorder, Alzheimer, vascular with delusion, depression; anxiety disorder, unspecified; impulse control disorder, unspecified; pneumonia and urinary tract infection. PLAN: The patient's Seroquel 50 mg twice a day will be discontinued until he is medically stabilized. We will use Zyprexa p.r.n. Continue rest of the psychotropics per initial note. JB LANDAVERDE MD DR: KYLE/abundio JOB#: [id number] / [id number]
--- NOTE | 2019-06-08 00:56 | PN ---
DATE: 06/07/2019 SUBJECTIVE: The patient is sitting comfortably in his chair, eating his lunch, in no apparent distress. He apparently is doing much, much better, has been able to walk with the walker with the standby assist. His urine has cleared. PHYSICAL EXAMINATION: GENERAL: When I examined him, he looked pale. No jaundice or cyanosis, no lymphadenopathy, and no thyromegaly. No jugular venous distention. No limb edema. VITAL SIGNS: His heart rate was 73, blood pressure was 167/84, temperature was 97.8, respiratory rate was 18, and oxygen saturation was 97%. HEAD, EYES, EARS, NOSE, AND THROAT: Showed normocephalic and atraumatic. NECK: Supple. HEART: Showed normal first and second heart sounds with no gallop, rub, or murmur. CHEST: Clear to auscultation. No crepitation. No rhonchi. ABDOMEN: Distended, soft and nontender. No guarding or rigidity. No organomegaly. All hernial orifices are intact. Bowel sounds normal. NEUROLOGIC: He is awake and alert with all his cranial nerves are intact. He moves extremities without difficulty. He ambulates with a walker. His intake over the last 24 hours was 2150 and output was 1150. LABORATORY DATA: As of this morning, his serum sodium was 143, potassium 3.9, chloride 111, bicarbonate 24, anion gap of 8, BUN 15, and creatinine 1.1. Estimated GFR was 64 mL per minute. His glucose was 105 and calcium was 8.3. ASSESSMENT: 1. Sepsis, likely due to urinary tract infection versus pneumonia. There is large amount leukocyturia and moderate amount of bacteriuria. Chest x-ray showed bilateral infiltrate. 2. Type 2 diabetes mellitus, which he is on metformin. His blood sugar has been reasonably controlled. 3. Atrial fibrillation, rate controlled, anticoagulated. 4. Hyperlipidemia. 5. Benign prostatic hypertrophy. 6. Bladder outlet obstruction, requiring indwelling Car catheter. 7. Hypertension. In fact, the patient is hypertensive today. 8. He has multiple cerebrovascular accidents. 9. Lumbar vertebral fracture at L1-L2, for which, he underwent vertebroplasty. He also had a nerve stimulator in his back. PLAN: To hold the IV fluid and continue with IV Zyvox and Zosyn. His urine culture so far is negative. So, await for the result of the cultures tomorrow and might eventually switch him to oral antibiotic. JOY BIRMINGHAM MD DR: NINA/abundio JOB#: [id number] / [id number]
[2019-06-08] MEDS: PIPERACILLIN/TAZOBACTAM 2.25 GM in IV NORMAL SALINE 50ML 50 ML IV SCH ×2 (01:51→09:41)
[2019-06-08 05:05] VITALS: BP 157/80
[2019-06-08] MEDS: IPRATRPIUM/ALBUTEROL 0.5/2.5MG 3 ML NEBU. NEB SCH ×2 (05:13→11:25)
[2019-06-08] MEDS ORDERED: PANTOPRAZOLE 40 MG TABLET. PO SCH (07:30)
[2019-06-08] MEDS: INSULIN LISPRO 300 UNITS/3 ML VIAL. SQ SCH ×2 (08:00→12:00)
[2019-06-08] MEDS: LACTOBACILLUS RHAMNOSUS GG 1 CAPSULE. PO SCH (08:22)
[2019-06-08] MEDS: NICOTINE 14MG PATCH. TD SCH (08:22)
[2019-06-08] MEDS: ATORVASTATIN CALCIUM 20 MG TABLET PO SCH (08:23)
[2019-06-08] MEDS: DOCUSATE SODIUM 100 MG CAPSULE PO SCH (08:23)
[2019-06-08] MEDS: TAMSULOSIN 0.4 MG CAP.ER.24H. PO SCH (08:23)
[2019-06-08] MEDS: CYANOCOBALAMIN (VITAMIN B-12) 1,000 MCG TABLET. PO SCH (08:23)
[2019-06-08] MEDS: ASPIRIN 325 MG TABLET PO SCH (08:23)
[2019-06-08] MEDS: MEMANTINE 5 MG TABLET. PO SCH (08:23)
[2019-06-08] MEDS: GABAPENTIN 300 MG CAPSULE. PO SCH (08:23)
[2019-06-08] MEDS ORDERED: MAG HYDROX/AL HYDROX/SIMETH 30 ML ORAL.SUSP PO PRN (10:00)
--- NOTE | 2019-06-08 12:40 | DS ---
DATE OF DISCHARGE: 06/08/2019 HOSPITAL COURSE: The patient is an 83-year-old male patient who was originally [facility] a transfer from [facility] on account of being combative, hitting staff, verbally aggressive, requiring Haldol several times, all this in a background of dementia with behavioral disorders. He apparently was living at home with his and fell and that is why he ended up at [facility]. He apparently hit his head; however, CT scan showed no abnormalities. According to his son, he has been incontinent of urine. He has had an indwelling Car catheter placed at [facility] and was transferred to Behavioral Unit for inpatient psychiatric stabilization. However, while there, he was noted to be hypotensive, has lactic acidosis and finding on chest x-ray and urinalysis are consistent with probably healthcare-associated pneumonia as well as UTI and therefore, he was admitted to the ICU, was started on IV fluid as well as IV antibiotic in the form of Zosyn and Zyvox. The patient did very well. He remained hemodynamically stable and afebrile. His white cell count has been normal and his kidney function has normalized. His blood cultures were remained negative after 2 days and as he has stabilized, a decision was made to transfer him to swing bed to continue the process of rehabilitation. I did discontinue his Car catheter. Obviously, he is already on Flomax and we will do scan his bladder regularly to make sure that he is not retaining urine. OBJECTIVE: GENERAL: When I saw him this morning, he looked well and was clearly in no apparent respiratory distress. Slightly pale, but no jaundice, cyanosis, or thyromegaly. No jugular venous distension. No limb edema. VITAL SIGNS: Her heart rate was 102, blood pressure 157/80, temperature was 98.3, respiratory rate was 18 and oxygen saturation was 97%. HEAD, EYES, EARS, NOSE AND THROAT: Showed normocephalic, atraumatic. NECK: Supple. HEART: Showed normal first and second heart sounds. No gallop, rub or murmur. CHEST: Clear to auscultation. No crepitation or rhonchi. ABDOMEN: Distended, soft, nontender. NEUROLOGIC: He was demented, but without any obvious lateralizing sign. All his cranial nerves are intact. He moves extremities without difficulty. He ambulates with a walker with standby assist. His intake over the last 24 hours was 2500, output was 2650. LABORATORY DATA: His lab work this morning showed a serum sodium of 143, potassium 3.9, chloride 111, bicarbonate 24, anion gap of 8, BUN 15, creatinine 1.1, estimated GFR was 64 mL per minute. His glucose was 105, calcium was 8.3. White cell count was 5900, hemoglobin was 9.8, hematocrit 30, MCV 95, and platelet count 206,000. DISCHARGE MEDICATIONS: He was transferred to swing bed to continue on Mylanta 30 mL every 2 hours as needed, Protonix 40 mg p.o. daily, Colace 100 mg daily, polyethylene glycol 17 grams daily, calcium carbonate for Tums 500 mg after meals and as needed, albuterol and Atrovent in 3 mL 4 times a day, lactobacillus rhamnosus 1 capsule twice a day, cyanocobalamin 1000 mcg daily, atorvastatin calcium 80 mg daily, tamsulosin 0.4 mg daily, nicotine 14 mg patch topically daily, Namenda 5 mg daily, aspirin 325 mg daily. We discontinued his linezolid as well as his piperacillin and tazobactam, switch him to Augmentin 500/125 twice a day. Meanwhile, continue with his gabapentin 300 mg twice a day, olanzapine 2.5 mg every 2 hours as needed and acetaminophen 1000 mg every 8 hours as needed. FINAL DISCHARGE DIAGNOSES: 1. Sepsis, likely due to urinary tract infection versus pneumonia. There was large amount leukocyturia and moderate amount of bacteria. Chest x-ray showed bilateral infiltrate; however, his blood cultures so far negative. 2. Type 2 diabetes mellitus, for which he is on metformin. His blood sugar has been reasonably controlled. 3. Atrial fibrillation, rate controlled; however, he is not on any anticoagulation. 4. Hyperlipidemia. 5. Benign prostatic hypertrophy. 6. Bladder outlet obstruction, requiring indwelling Car catheter. 7. Hypertension. 8. He has multiple cerebrovascular accidents. 9. Lumbar vertebral fracture at L1-L2, status post vertebroplasty. 10. He has also had nerve stimulator in his back. 11. Advanced dementia with impulse control disorder. JOY BIRMINGHAM MD DR: NINA/abundio JOB#: [id number] / [id number]
--- NOTE | 2019-06-08 13:43 | PN ---
DATE: 06/07/2019 PSYCHIATRIC PROGRESS NOTE This late entry 06/07/2019 covers elements not covered in my initial note. SUBJECTIVE: I met with the nursing staff, reviewed the patient's chart. The patient is being transferred to [address] [place] [address] and is being treated for his pneumonia and UTI. He remains somewhat depressed, tearful. Plan is to transition him to the senior care unit for rehab before he returns home possibly. Seroquel has been discontinued due to low blood pressure. He remains on Celexa. Catheter will be removed in the morning. He was up until about 4:00 a.m. previous night, watching television and then caught up on his sleep. He has had some tiredness, but no specific CV, , pulmonary, eye system symptoms on review. MENTAL STATUS EXAMINATION: The patient is oriented to himself and situation. Speech has some latency, coherent. Abstraction fair, computation impaired, language function intact. Mood and affect still depressed, withdrawn with some short-term memory deficits. IMPRESSION: Unchanged from initial note. PLAN: No change from initial note. MAN Cristina LANDAVERDE MD DR: KYLE/abundio JOB#: [id number] / [id number]
[2019-06-08] MEDS ORDERED: CALCIUM CARBONATE PO (14:16)
[2019-06-08] MEDS ORDERED: DOCU100C28 PO (14:16)
[2019-06-08] MEDS ORDERED: IPRA3AMP29 NEB (14:16)
[2019-06-08] MEDS ORDERED: LACT1CAP19 PO (14:20)
[2019-06-08] MEDS ORDERED: OLAN5TAB9 PO (14:20)
[2019-06-08] MEDS ORDERED: POLY17PO5 PO (14:20)
[2019-06-08] MEDS ORDERED: MAG-115 PO (14:20)
[2019-06-08] MEDS ORDERED: PANT40TA5 PO (14:20)
--- NOTE | 2019-06-11 05:28 | PN ---
DATE: 06/08/2019 PSYCHIATRIC PROGRESS NOTE This late entry 06/08/2019 covers elements not covered in my initial note. SUBJECTIVE: I met with the patient evening of 06/08/2019. The patient remains somewhat anxious, restless, gets more confused in the evening, more oriented during the day, seems to have some sundowning. He has been extremely anxious, restless, wanting to be discharged. Family has been spending most of the day with him. REVIEW OF SYSTEMS: Positive for some tiredness. No CV, , pulmonary, eye system symptoms on review. MENTAL STATUS EXAM: Oriented to himself and situation. Speech coherent, can be somewhat pressured at times. Abstraction fair, computation impaired, language function intact. Short term memory is impaired. No suicidal or homicidal ideation. Mood is depressed, anxious. Affect is mood congruent. IMPRESSION: Unchanged from initial note. PLAN: No change from initial note. MAN Cristina LANDAVERDE MD DR: KYLE/abundio JOB#: [id number] / [id number]
== END 2019-06-08 12:19 | disposition swing bed (61) | DRG 871 ==
LOC: ICU 16:43 → 1 SOUTH 06-07 13:20
PROVIDERS: ADMIT Internal Medicine; ATTEND Internal Medicine
DX: A41.9 Sepsis, unspecified organism (principal); J18.9 Pneumonia, unspecified organism; N39.0 Urinary tract infection, site not specified; F02.81 Dementia in other diseases classified elsewhere, unspecified severity, with behavioral disturbance; E11.9 Type 2 diabetes mellitus without complications; N40.0 Benign prostatic hyperplasia without lower urinary tract symptoms; I10 Essential (primary) hypertension; E78.5 Hyperlipidemia, unspecified; Z86.73 Personal history of transient ischemic attack (TIA), and cerebral infarction without residual deficits; Z87.891 Personal history of nicotine dependence; Y95 Nosocomial condition; I48.91 Unspecified atrial fibrillation; F01.50 Vascular dementia, unspecified severity, without behavioral disturbance, psychotic disturbance, mood disturbance, and anxiety; F32.9 Major depressive disorder, single episode, unspecified; F41.9 Anxiety disorder, unspecified; F63.9 Impulse disorder, unspecified; G30.1 Alzheimer's disease with late onset; N32.0 Bladder-neck obstruction
CPT/HCPCS: 36415; 80048; 80053; 82947; 83880; 85027; 87040; 87449; 94640; 94760; J1815; J2020; J2543; J7040; J7620; 97110; 97116; 97535; J7030

== ENCOUNTER 2019-06-08 12:19 | Inpatient (IN) | payer MEDICARE, BC ==
[~2019-06-08] VITALS: Ht 175.3 cm; Wt 91.7 kg
[~2019-06-08 12:19] MED LIST changes: +NICO1PAT25 TP; +OLAN2.5T3 PO
[2019-06-08 13:23] VITALS: BP 101/59
[2019-06-08] MEDS ORDERED: POLYETHYLENE GLYCOL 3350 17 GM PACKET. PO PRN (14:15)
[2019-06-08] MEDS ORDERED: ACETAMINOPHEN 500 MG TABLET PO PRN (14:15)
[2019-06-08] MEDS ORDERED: OLANZapine 5 MG TABLET PO PRN (14:15)
[2019-06-08] MEDS ORDERED: CALCIUM CARBONATE PO (14:16)
[2019-06-08] MEDS ORDERED: IPRA3AMP29 NEB (14:16)
[2019-06-08] MEDS ORDERED: DOCU100C28 PO (14:16)
[2019-06-08] MEDS ORDERED: POLY17PO5 PO (14:20)
[2019-06-08] MEDS ORDERED: PANT40TA5 PO (14:20)
[2019-06-08] MEDS ORDERED: LACT1CAP19 PO (14:20)
[2019-06-08] MEDS ORDERED: OLAN5TAB9 PO (14:20)
[2019-06-08] MEDS ORDERED: MAG-115 PO (14:20)
[2019-06-08] MEDS ORDERED: CALCIUM CARBONATE 500 MG TAB.CHEW PO PRN (14:45)
[2019-06-08] MEDS: IPRATRPIUM/ALBUTEROL 0.5/2.5MG 3 ML NEBU. NEB SCH ×2 (16:52→22:10)
[2019-06-08] MEDS: AMOXICILLIN/K CLAV 500/125MG TABLET. PO SCH (16:56)
[2019-06-08] MEDS: INSULIN LISPRO 300 UNITS/3 ML VIAL. SQ SCH (16:57)
[2019-06-08 18:27] VITALS: BP 114/63
[2019-06-08] MEDS: GABAPENTIN 300 MG CAPSULE. PO SCH (20:41)
--- NOTE | 2019-06-08 21:28 | PDOC ---
Exam Note: Shola Note: Please also refer to the separate dictated note~for this date of service dictated separately.~Patient seen individually. Discussed the patient with Nursing staff reviewed the chart.~Reviewed interim history and current functioning. Reviewed vital signs,~Labs/ Radiology~and current medications noted below. Continue current treatment with the changes noted in the dictated addendum note Assessment: Vital Signs/I&O: Vital Signs Date Time Temp Pulse Resp B/P (MAP) Pulse Ox O2 Delivery O2 Flow Rate FiO2 06/08/19 18:27 97.4 75 20 114/63 (80) 98 Room Air Labs: Laboratory Tests Test 06/08/19 16:56 06/08/19 19:28 Glucose (Fingerstick) 120 mg/dL (70-99) H 159 mg/dL (70-99) H Current Medications: Meds: Current Medications Medications (Trade) Dose Ordered Sig/Olga Route PRN Reason Start Time Stop Time Status Last Admin Dose Admin Albuterol/ Ipratropium (Duoneb) 3 ml RTQID NEB 06/08/19 16:00 06/08/19 16:52 Olanzapine (ZyPREXA) 2.5 mg PRN Q2HR PRN PO PSYCHOSIS 06/08/19 14:15 06/08/19 20:41 Gabapentin (Neurontin) 300 mg BID PO 06/08/19 21:00 06/08/19 20:41 Calcium Carbonate/ Glycine (Tums) 500 mg PRN AFTMEALHC PRN PO INDIGESTION 06/08/19 14:45 06/08/19 20:41 Amoxicillin/ Clavulanate Potassium (Augmentin 500/ 125mg) 1 tab BIDWMEALS PO 06/08/19 17:00 06/15/19 09:00 06/08/19 16:56 I have reviewed the current psychotropics carefully including drug interactions. Risk benefit ratio favors no change other than as noted in my dictated progress note. Diagnosis: Problems: (1) Late onset Alzheimer's disease with behavioral disturbance (2) Anxiety disorder (3) Dementia in Alzheimer's disease with delusions (4) Dementia in Alzheimer's disease with depression (5) Dementia, vascular, with delusions (6) Dementia, vascular, with depression (7) Impulse control disorder JB LANDAVERDE MD Jun 08, 2019 21:28
[2019-06-09] MEDS: PANTOPRAZOLE 40 MG TABLET. PO SCH (05:03)
[2019-06-09] MEDS: IPRATRPIUM/ALBUTEROL 0.5/2.5MG 3 ML NEBU. NEB SCH ×4 (05:35→20:42)
[2019-06-09 06:11] VITALS: BP 142/62
[2019-06-09] MEDS: INSULIN LISPRO 300 UNITS/3 ML VIAL. SQ SCH ×3 (08:00→17:00)
[2019-06-09] MEDS: ASPIRIN 325 MG TABLET PO SCH (11:14)
[2019-06-09] MEDS: GABAPENTIN 300 MG CAPSULE. PO SCH ×2 (11:14→20:18)
[2019-06-09] MEDS: LACTOBACILLUS RHAMNOSUS GG 1 CAPSULE. PO SCH (11:14)
[2019-06-09] MEDS: CYANOCOBALAMIN (VITAMIN B-12) 1,000 MCG TABLET. PO SCH (11:14)
[2019-06-09] MEDS: MEMANTINE 5 MG TABLET. PO SCH (11:14)
[2019-06-09] MEDS: ATORVASTATIN CALCIUM 20 MG TABLET PO SCH (11:14)
[2019-06-09] MEDS: DOCUSATE SODIUM 100 MG CAPSULE PO SCH (11:14)
[2019-06-09] MEDS: TAMSULOSIN 0.4 MG CAP.ER.24H. PO SCH (11:14)
[2019-06-09] MEDS: NICOTINE 14MG PATCH. TD SCH (11:15)
[2019-06-09] MEDS: AMOXICILLIN/K CLAV 500/125MG TABLET. PO SCH ×2 (11:16→18:00)
[2019-06-09] MEDS ORDERED: CALCIUM CARBONATE 500 MG TAB.CHEW PO PRN (12:30)
[2019-06-09] MEDS: MAG HYDROX/AL HYDROX/SIMETH 30 ML ORAL.SUSP PO PRN ×2 (12:30→18:01)
[2019-06-09 17:52] VITALS: BP 145/73
--- NOTE | 2019-06-09 23:16 | PDOC ---
Exam Note: Shola Note: Please also refer to the separate dictated note~for this date of service dictated separately.~Patient seen individually. Discussed the patient with Nursing staff reviewed the chart.~Reviewed interim history and current functioning. Reviewed vital signs,~Labs/ Radiology~and current medications noted below. Continue current treatment with the changes noted in the dictated addendum note Assessment: Vital Signs/I&O: Vital Signs Date Time Temp Pulse Resp B/P (MAP) Pulse Ox O2 Delivery O2 Flow Rate FiO2 06/09/19 20:43 97 Room Air 06/09/19 17:52 98.0 79 20 145/73 (97) I & O 06/08/19 06/08/19 06/09/19 15:00 23:00 07:00 Intake Total 240 ml 240 ml 150 ml Balance 240 ml 240 ml 150 ml Labs: Laboratory Tests Test 06/09/19 08:00 06/09/19 11:55 06/09/19 16:46 06/09/19 20:43 Glucose (Fingerstick) 95 mg/dL (70-99) 115 mg/dL (70-99) H 104 mg/dL (70-99) H 117 mg/dL (70-99) H Current Medications: Meds: Current Medications Medications (Trade) Dose Ordered Sig/Olga Route PRN Reason Start Time Stop Time Status Last Admin Dose Admin Aspirin (Cheo Aspirin) 325 mg DAILY PO 06/09/19 09:00 06/09/19 11:14 Lactobacillus Rhamnosus (Culturelle) 1 cap DAILY PO 06/09/19 09:00 06/09/19 11:14 Memantine (Namenda) 5 mg DAILY PO 06/09/19 09:00 06/09/19 11:14 Nicotine (Nicoderm Cq 14mg) 1 patch DAILY TD 06/09/19 09:00 06/09/19 11:15 Pantoprazole Sodium (Protonix) 40 mg DAILY06 PO 06/09/19 06:00 06/09/19 05:03 Tamsulosin HCl (Flomax) 0.4 mg DAILY PO 06/09/19 09:00 06/09/19 11:14 Atorvastatin Calcium (Lipitor) 80 mg DAILY PO 06/09/19 09:00 06/09/19 11:14 Cyanocobalamin (Vitamin B-12) 1,000 mcg DAILY PO 06/09/19 09:00 06/09/19 11:14 Docusate Sodium (Colace) 100 mg DAILY PO 06/09/19 09:00 06/09/19 11:14 I have reviewed the current psychotropics carefully including drug interactions. Risk benefit ratio favors no change other than as noted in my dictated progress note. Diagnosis: Problems: (1) Late onset Alzheimer's disease with behavioral disturbance (2) Anxiety disorder (3) Dementia in Alzheimer's disease with delusions (4) Dementia in Alzheimer's disease with depression (5) Dementia, vascular, with delusions (6) Dementia, vascular, with depression (7) Impulse control disorder JB LADNAVERDE MD Jun 09, 2019 23:16
[2019-06-10] MEDS: IPRATRPIUM/ALBUTEROL 0.5/2.5MG 3 ML NEBU. NEB SCH ×2 (05:36→11:59)
[2019-06-10] MEDS: PANTOPRAZOLE 40 MG TABLET. PO SCH (05:36)
[2019-06-10 05:59] VITALS: BP 140/68
[2019-06-10] MEDS: CYANOCOBALAMIN (VITAMIN B-12) 1,000 MCG TABLET. PO SCH (08:26)
[2019-06-10] MEDS: ASPIRIN 325 MG TABLET PO SCH (08:26)
[2019-06-10] MEDS: NICOTINE 14MG PATCH. TD SCH (08:26)
[2019-06-10] MEDS: INSULIN LISPRO 300 UNITS/3 ML VIAL. SQ SCH ×2 (08:26→12:20)
[2019-06-10] MEDS: TAMSULOSIN 0.4 MG CAP.ER.24H. PO SCH (08:26)
[2019-06-10] MEDS: MEMANTINE 5 MG TABLET. PO SCH (08:26)
[2019-06-10] MEDS: DOCUSATE SODIUM 100 MG CAPSULE PO SCH (08:27)
[2019-06-10] MEDS: LACTOBACILLUS RHAMNOSUS GG 1 CAPSULE. PO SCH (08:27)
[2019-06-10] MEDS: GABAPENTIN 300 MG CAPSULE. PO SCH (08:27)
[2019-06-10] MEDS: ATORVASTATIN CALCIUM 20 MG TABLET PO SCH (08:27)
[2019-06-10] MEDS: AMOXICILLIN/K CLAV 500/125MG TABLET. PO SCH (08:29)
--- NOTE | 2019-06-11 05:40 | PN ---
DATE: 06/09/2019 PSYCHIATRIC PROGRESS NOTE This late entry 06/09/2019 covers elements not covered in my initial note. SUBJECTIVE: I met with the patient evening of 06/09/2019. The patient has had a difficult day, getting agitated at his sons for not discharging him. The family have indicated that they will take him home once he is deemed medically stable and we will provide extra care for him there. I processed this with him at some length individually. He was accepting for possible discharge 06/10/2019. REVIEW OF SYSTEMS: No CV, , pulmonary, eye system symptoms on review. MENTAL STATUS EXAM: Oriented to himself and situation. Speech is coherent, somewhat pressured. Abstraction fair, computation impaired, language function intact. Short term memory is impaired. I met with him in evening of 06/09/2019. LABORATORY DATA: Reviewed. IMPRESSION: Unchanged from initial note. PLAN: No change from initial note and if the family want to discharge him 06/10/2019 to home with in-home services, from a psychiatric standpoint I am accepting of this, though he ideally needs a more structured placement. MAN Cristina LANDAVERDE MD DR: KYLE/abundio JOB#: [id number] / [id number]
== END 2019-06-10 14:59 | disposition home health service (06) | DRG 948 ==
LOC: LND 12:19 → UNDOADMIN 12:39
PROVIDERS: ADMIT Internal Medicine; ATTEND Internal Medicine
DX: R53.1 Weakness (principal); F02.81 Dementia in other diseases classified elsewhere, unspecified severity, with behavioral disturbance; G30.1 Alzheimer's disease with late onset; F01.50 Vascular dementia, unspecified severity, without behavioral disturbance, psychotic disturbance, mood disturbance, and anxiety; F32.9 Major depressive disorder, single episode, unspecified; F41.9 Anxiety disorder, unspecified; F63.9 Impulse disorder, unspecified
CPT/HCPCS: 82947; 94640; 94760; J7620; 97110; 97116